=== PATIENT | male | born 1970 ===

== ENCOUNTER 2021-05-01 10:47 | Day surgery (SDC) | payer OTHER | END 2021-05-01 15:30 | disposition home or self-care (01) | LOC: AMB-ENDOS 10:47 | PROVIDERS: ATTEND Surgery | DX: D12.4 Benign neoplasm of descending colon (principal); D12.5 Benign neoplasm of sigmoid colon; K64.8 Other hemorrhoids; Z20.822 Contact with and (suspected) exposure to COVID-19 ==